=== PATIENT | female | born 1965 | race Hispanic/Latino ===

== ENCOUNTER 2017-02-07 18:03 | Emergency (ER) | payer OTHER ==
[2017-02-07 18:19] VITALS: BP 95/38
[2017-02-07 18:50] LABS: Basophils % (Auto) 1.3 % (0.0-1.8); Hematocrit 39.9 % (30.3-42.9); Hemoglobin 13.8 gm/dl (10.1-14.3); Mean Corpuscular HGB Conc 35 % (30-34); Mean Corpuscular Hemoglobin 35 pg (28-32); Mean Corpuscular Volume 102 fl (79-97); Platelet Count 186 K/mm3 (140-440); Red Cell Distribution Width 13.3 % (13.2-15.2); White Blood Count 5.3 K/mm3 (4.5-11.0)
[2017-02-07 19:00] LABS: Alanine Aminotransferase 13 units/L (7-56); Albumin 4.5 g/dL (3.9-5); Albumin/Globulin Ratio 2.5 %; Alkaline Phosphatase 36 units/L (35-129); Anion Gap 18 mmol/L; BUN/Creatinine Ratio 38; Bilirubin,Total < 0.20 mg/dL (0.1-1.2); Blood Urea Nitrogen 19 mg/dL (7-17); Calcium 9.1 mg/dL (8.4-10.2); Carbon Dioxide 22 mmol/L (22-30); Chloride 104.5 mmol/L (98-107); Glucose 89 mg/dL (65-100); Lipase 59 units/L (13-60); Potassium 3.9 mmol/L (3.6-5.0); Sodium 141 mmol/L (137-145); Total Protein 6.3 g/dL (6.3-8.2)
[2017-02-07 21:33] LABS: Bilirubin,Urine NEG (Negative)
[2017-02-07 21:34] LABS: Bacteria,Urine 1+ /HPF (Negative); Blood,Urine NEG (Negative); Ketones,Urine 20 mg/dL (Negative); Leukocyte Esterase,Urine NEG (Negative); Mucus,Urine FEW /HPF; Nitrite,Urine NEG (Negative); Protein,Urine <15 mg/dL mg/dL (Negative); Urobilinogen,Urine < 2.0 mg/dL (<2.0)
== END 2017-02-07 22:25 | disposition left against medical advice (07) ==
LOC: ED 18:03
DX: R07.9 Chest pain, unspecified (principal); R10.9 Unspecified abdominal pain; Z53.21 Procedure and treatment not carried out due to patient leaving prior to being seen by health care provider
CPT/HCPCS: 36415; 80053; 81001; 83690; 85025; 93005; 93010